=== PATIENT | female | born 1980 | race Two or more races ===

== ENCOUNTER 2016-08-30 01:24 | Inpatient (IN) | payer SELFPAY ==
[~2016-08-30] VITALS: Ht 162.6 cm; Wt 60.4 kg
[2016-08-30] VITALS (13 sets, daily range): BP systolic 80–114; BP diastolic 39–72
[2016-08-30] MEDS ORDERED: IV NORMAL SALINE 1000ML BAG 1,000 ML IV ONE (02:00)
--- NOTE | 2016-08-30 02:04 | PHYS DOC ---
Adult General Chief Complaint Chief Complaint: ABDOMINAL PAIN HPI HPI Patient is a 36 year old female who presents with abdominal pain. Patient reports 2 day history of epigastric and right upper quadrant abdominal pain radiating to her right back. Reports associated nausea without vomiting. Denies fevers or chills, hematemesis, diarrhea or constipation, hematochezia or melena , dysuria or hematuria. Reports previous history of similar symptoms about 1 month ago for which she did not seek medical treatment, spontaneously resolved. History of C-sections in the past. Denies use of alcohol. PCP at the [facility]. History obtained with assistance of Frisian language line geospatial information scientist Review of Systems Review of Systems Constitutional: Denies fever or chills Eyes: Denies change in visual acuity HENT: Denies nasal congestion or sore throat Respiratory: Denies cough or shortness of breath Cardiovascular: Denies chest pain or edema GI: Reports abdominal pain, nausea, denies vomiting, bloody stools or diarrhea : Denies dysuria or hematuria Musculoskeletal: Reports flank pain, denies joint pain Integument: Denies rash or skin lesions Neurologic: Denies headache, focal weakness or sensory changes Current Medications Current Medications Current Medications Medications (Trade) Dose Ordered Sig/Irma Start Time Stop Time Status Last Admin Dose Admin Fentanyl Citrate 50 mcg 50 mcg PRN Q15MIN PRN 08/30/16 02:00 08/31/16 01:59 08/30/16 02:17 50 MCG Levofloxacin/ Dextrose (LEVAQUIN 750mg PREMIX) 150 ml @ 100 mls/hr 1X ONCE 08/30/16 03:30 08/30/16 04:59 Metronidazole 100 ml @ 100 mls/hr 1X ONCE 08/30/16 03:30 08/30/16 04:29 Morphine Sulfate 4 mg 4 mg PRN Q2HR PRN 08/30/16 03:30 08/31/16 03:29 Ondansetron HCl (Zofran) 4 mg PRN Q8HRS PRN 08/30/16 03:30 08/31/16 03:29 Sodium Chloride (Iv Sodium Chloride 0.9% 1000ml Bag) 1,000 ml @ 125 mls/hr Q8H 08/30/16 03:21 08/31/16 03:20 Allergies Allergies Allergies Coded Allergies Type Severity Reaction Last Updated Verified Penicillins Allergy Intermediate 08/30/16 Yes Physical Exam Physical Exam Constitutional: Well-developed, well-nourished, appears uncomfortable, non- toxic appearance. HENT: Normocephalic, atraumatic, bilateral external ears normal, oropharynx moist, nose normal. Eyes: conjunctiva normal, no discharge. Neck: supple, no stridor. Cardiovascular: RRR, no murmurs, no edema. Lungs & Thorax: LCTAB, no wheezing, no respiratory distress. Abdomen: normal bowel sounds, soft, epigastric & RUQ tenderness with palpation, no rebound/guarding, no masses or pulsatile masses, nondistended. Skin: Warm, dry, no erythema, no rash. Back: Right CVA tenderness. Extremities: No tenderness, no edema. Neurologic: Alert and oriented X 3, no focal deficits noted. Psychologic: Affect normal, judgement normal, mood normal. Current Patient Data Vital Signs Vital Signs Date Time Temp Pulse Resp B/P Pulse Ox O2 Delivery O2 Flow Rate FiO2 08/30/16 02:17 16 Room Air 08/30/16 02:02 98.3 76 155/89 99 98.3 Lab Values Laboratory Tests Test 08/30/16 00:44 08/30/16 01:33 08/30/16 01:43 POC Urine HCG, Qualitative Hcg negative (Negative) Urine Collection Type Unknown Urine Color Yellow Urine Clarity Clear Urine pH 5.5 Urine Specific [place] 1.020 Urine Protein Negativemg/dL (NEG-TRACE) Urine Glucose (UA) Negativemg/dL (NEG) Urine Ketones (Stick) Negativemg/dL (NEG) Urine Blood Trace (NEG) Urine Nitrite Negative (NEG) Urine Bilirubin Negative (NEG) Urine Urobilinogen Dipstick 0.2mg/dL (0.2 mg/dL) Urine Leukocyte Esterase Negative (NEG) Urine RBC Occ/HPF (0-2) Urine WBC 1-4/HPF (0-4) Urine Squamous Epithelial Cells Many/LPF Urine Bacteria Few/HPF (0-FEW) Urine Mucus Mod/LPF White Blood Count 13.2x10^3/uL (4.0-11.0) H Red Blood Count 4.64x10^6/uL (3.50-5.40) Hemoglobin 13.1g/dL (12.0-15.5) Hematocrit 39.5% (36.0-47.0) Mean Corpuscular Volume 85fL (79-100) Mean Corpuscular Hemoglobin 28pg (25-35) Mean Corpuscular Hemoglobin Concent 33g/dL (31-37) Red Cell Distribution Width 13.7% (11.5-14.5) Platelet Count 190x10^3/uL (140-400) Neutrophils (%) (Auto) 63% (31-73) Lymphocytes (%) (Auto) 23% (24-48) L Monocytes (%) (Auto) 10% (0-9) H Eosinophils (%) (Auto) 3% (0-3) Basophils (%) (Auto) 0% (0-3) Neutrophils # (Auto) 8.4x10^3uL (1.8-7.7) H Lymphocytes # (Auto) 3.0x10^3/uL (1.0-4.8) Monocytes # (Auto) 1.4x10^3/uL (0.0-1.1) H Eosinophils # (Auto) 0.4x10^3/uL (0.0-0.7) Basophils # (Auto) 0.0x10^3/uL (0.0-0.2) Sodium Level 141mmol/L (136-145) Potassium Level 3.9mmol/L (3.5-5.1) Chloride Level 104mmol/L (98-107) Carbon Dioxide Level 27mmol/L (21-32) Anion Gap 10 (6-14) Blood Urea Nitrogen 15mg/dL (7-20) Creatinine 0.6mg/dL (0.6-1.0) Estimated GFR (Cockcroft-Gault) 113.8 BUN/Creatinine Ratio 25 (6-20) H Glucose Level 122mg/dL (70-99) H Calcium Level 8.7mg/dL (8.5-10.1) Total Bilirubin 0.3mg/dL (0.2-1.0) Aspartate Amino Transferase (AST) 9U/L (15-37) L Alanine Aminotransferase (ALT) 29U/L (14-59) Alkaline Phosphatase 58U/L (46-116) Total Protein 8.1g/dL (6.4-8.2) Albumin 3.8g/dL (3.4-5.0) Albumin/Globulin Ratio 0.9 (1.0-1.7) L Lipase 198U/L (73-393) Laboratory Tests 08/30/16 01:43 Laboratory Tests 08/30/16 01:43 EKG EKG [] Radiology/Procedures Radiology/Procedures PROCEDURE: ABDOMEN LTD PROCEDURE Ultrasound limited abdomen HISTORY Right upper quadrant epigastric pain TECHNIQUE Sonographic examination of the right upper quadrant was performed and multiple static images were obtained FINDINGS The gallbladder is distended and there are small mobile shadowing stones. There is a large stone in the gallbladder neck. The gallbladder wall is top normal limits measuring 3 millimeters in thickness. There is a trace of surrounding fluid and there is tenderness. The common bile duct is top normal limits size measuring 5.5 millimeters in diameter. The right kidney appears normal measures 11 centimeters in length. The majority liver is visualized appears homogeneous. The pancreas is not seen due to overlying bowel gas. IMPRESSION Cholelithiasis and acute cholecystitis. Electronically signed by: Tiffani Sage MD (Aug 30, 2016 02:57:21) DICTATED and SIGNED BY: TIFFANI SAGE III, MD DATE: 08/30/16 0257 [] Course & Med Decision Making Course & Med Decision Making Pertinent Labs and Imaging studies reviewed. (See chart for details) Patient presents with right upper quadrant pain & nausea. Afebrile, RUQ tenderness on exam, mild leukocytosis, normal LFTs, US shows cholelithiasis & acute cholecystitis. Gave IV fluids, zofran, pain medication. Discussed results with patient via geospatial information scientist phone, she agrees with admission. Discussed with Dr. Mtz who plans for lap sharon in the morning, requests admit to hospitalist. Levaquin & flagyl given here. Discussed with Dr. East who agrees to admit to inpatient status. Patient admitted in stable condition. [] Dragon Disclaimer Dragon Disclaimer This electronic medical record was generated, in whole or in part, using a voice recognition dictation system. Departure Departure Impression: Primary Impression: Acute cholecystitis Additional Impressions: Cholelithiasis Leukocytosis Disposition: ADMITTED INPATIENT Admitting Physician: Sara East Condition: STABLE Referrals: NO PCP (PCP) Problem Qualifiers JD SALAZAR MD Aug 30, 2016 02:04
[2016-08-30 02:07] LABS: BASO % 0 % (0-3); EOS % 3 % (0-3); HEMATOCRIT 39.5 % (36.0-47.0); HEMOGLOBIN 13.1 g/dL (12.0-15.5); LYMPH % 23 % (24-48); MEAN CORPUSCULAR HEMOGLOBIN 28 pg (25-35); MEAN CORPUSCULAR HGB CONC 33 g/dL (31-37); MEAN CORPUSCULAR VOLUME 85 fL (79-100); MONO % 10 % (0-9); NEUT % 63 % (31-73); PLATELET COUNT 190 x10^3/uL (140-400); RED BLOOD COUNT 4.64 x10^6/uL (3.50-5.40); RED CELL DISTRIBUTION WIDTH 13.7 % (11.5-14.5); WHITE BLOOD COUNT 13.2 x10^3/uL (4.0-11.0)
[2016-08-30 02:10] LABS: BILIRUBIN,URINE NEGATIVE (NEG); GLUCOSE,URINE NEGATIVE (NEG); NITRITE,URINE NEGATIVE (NEG); PH,URINE 5.5; PROTEIN,URINE NEGATIVE (NEG-TRACE); UROBILINOGEN,URINE 0.2 mg/dL (0.2 mg/dL)
[2016-08-30 02:17] LABS: BACTERIA,URINE FEW /HPF (0-FEW); RBC,URINE OCC /HPF (0-2); SQUAMOUS EPITHELIAL CELL,UR MANY /LPF
[2016-08-30 02:17] LABS: CALCIUM 8.7 mg/dL (8.5-10.1); CREATININE 0.6 mg/dL (0.6-1.0); GFR 113.8; POTASSIUM 3.9 mmol/L (3.5-5.1)
[2016-08-30] MEDS: FENTANYL PF 100 MCG/2 ML VIAL. IV PRN ×4 (02:17→11:26)
[2016-08-30 02:23] LABS: ALBUMIN 3.8 g/dL (3.4-5.0); ALBUMIN/GLOBULIN RATIO 0.9 (1.0-1.7); TOTAL BILIRUBIN 0.3 mg/dL (0.2-1.0); TOTAL PROTEIN 8.1 g/dL (6.4-8.2)
[2016-08-30] MEDS ORDERED: ONDANSETRON PF 4 MG/2 ML VIAL. IV ONE (02:30)
--- NOTE | 2016-08-30 02:59 | RAD ---
PROCEDURE Ultrasound limited abdomen HISTORY Right upper quadrant epigastric pain TECHNIQUE Sonographic examination of the right upper quadrant was performed and multiple static images were obtained FINDINGS The gallbladder is distended and there are small mobile shadowing stones. There is a large stone in the gallbladder neck. The gallbladder wall is top normal limits measuring 3 millimeters in thickness. There is a trace of surrounding fluid and there is tenderness. The common bile duct is top normal limits size measuring 5.5 millimeters in diameter. The right kidney appears normal measures 11 centimeters in length. The majority liver is visualized appears homogeneous. The pancreas is not seen due to overlying bowel gas. IMPRESSION Cholelithiasis and acute cholecystitis. Electronically signed by: Miguel Angel Oneal MD (Aug 30, 2016 02:57:21)
[2016-08-30] MEDS ORDERED: MORPHINE SULFATE 4 MG/ML DISP.SYRIN. IV PRN (03:30)
[2016-08-30] MEDS ORDERED: ONDANSETRON PF 4 MG/2 ML VIAL. IV PRN ×2 (03:30→07:30)
[2016-08-30] MEDS ORDERED: METRONIDAZOLE 500mg PREMIX 100 ML IV ONE (03:30)
[2016-08-30] MEDS: IV NORMAL SALINE 1000ML BAG 1,000 ML IV SCH ×3 (04:37→17:48)
[2016-08-30] MEDS ORDERED: IOHEXOL 300 MG/ML 50 ML VIAL. ONE (07:16)
[2016-08-30] MEDS ORDERED: BUPIVAC MPF-EPI 0.5%-1:200000 30 ML VIAL. ONE (07:16)
[2016-08-30] MEDS ORDERED: SURGICEL HEMOSTAT 4X8 EACH. ONE (07:16)
[2016-08-30] MEDS ORDERED: IV RINGERS,LACTATED 1000ML 1,000 ML IV SCH (07:29)
[2016-08-30] MEDS ORDERED: HYDROMORPHONE 2 MG/ML VIAL. IV PRN (07:30)
[2016-08-30] MEDS ORDERED: FENTANYL PF 100 MCG/2 ML VIAL. IV PRN (07:30)
[2016-08-30] MEDS ORDERED: LIDOCAINE 1% 1 ML SYRINGE. ID PRN (07:30)
[2016-08-30] MEDS ORDERED: PROCHLORPERAZINE 10 MG/2 ML VIAL. IV PRN (07:30)
[2016-08-30] MEDS ORDERED: LIDOCAINE 2% 100 MG/5 ML SYRINGE. ONE (08:26)
[2016-08-30] MEDS ORDERED: PROPOFOL 20 ML IV ONE (08:26)
[2016-08-30] MEDS ORDERED: MIDAZOLAM HCL/PF 2 MG/2 ML VIAL. ONE (08:26)
[2016-08-30] MEDS ORDERED: ONDANSETRON PF 4 MG/2 ML VIAL. ONE (08:26)
[2016-08-30] MEDS ORDERED: DEXAMETHASONE SOD PHOS 20 MG/5 ML VIAL. ONE (08:26)
[2016-08-30] MEDS ORDERED: FENTANYL PF 100 MCG/2 ML VIAL. ONE ×2 (08:27→10:32)
[2016-08-30] MEDS ORDERED: ROCURONIUM 50 MG/5 ML VIAL. ONE (08:27)
[2016-08-30] MEDS ORDERED: BUPIVAC MPF-EPI 0.5%-1:200000 30 ML VIAL. IJ ONE (09:35)
[2016-08-30] MEDS ORDERED: IOHEXOL 300 MG/ML 50 ML VIAL. IV ONE (09:45)
[2016-08-30] MEDS ORDERED: NEOSTIGMINE METHYLSULFATE 5 MG/5 ML SYRINGE. ONE (09:48)
[2016-08-30] MEDS ORDERED: GLYCOPYRROLATE 1 MG/5 ML VIAL. ONE (09:48)
[2016-08-30] MEDS ORDERED: DESFLURANE 61 TO 120 MINUTES IH ONE (09:49)
--- NOTE | 2016-08-30 09:56 | ACF ---
Admission Forms Criteria GALLBLADDER OR BILE DUCT INFLAMMATION OR STONE Clinical Indications for Admission to Inpatient Care ( Place 'X' for any and all applicable criteria): Admission is indicated for patients with ANY ONE of the following(1)(2)(3)(4)(5) : [X]I. Acute cholecystitis as indicated by ALL of the following: [X]a) Right upper quadrant pain, mass, or tenderness [X]b) Systemic signs of inflammation indicated by ANY ONE of the following: [ ]i) Fever [ ]ii) C-reactive protein level greater than 10 mg/L (95 nmol/L) [X]iii) White blood cell count greater than 10,000/mm3 (10 x109/L) or less than 4000/mm3 (4 x109/L) [ ]II. Inpatient admission required rather than observation care (Also use Gallbladder or Bile Duct Inflammation or Stone: Observation Care as appropriate) because of ANY ONE of the following: [ ]a) Common bile duct obstruction diagnosed [ ]b) Vomiting that is severe or persistent [ ]c) Severe pain requiring acute inpatient management [ ]d) Signs of intestinal obstruction or peritonitis [A] [ ]e) Severe electrolyte abnormalities requiring inpatient care [ ]f) Absent bowel sounds with complete ileus(8) [ ]g) Hemodynamic instability [ ]h) High fever or infection requiring inpatient admission as indicated by ANY ONE of the following (9): [ ]1) Appropriate outpatient or observation care antimicrobial Treatment. unavailable, not effective, or not feasible [ ]2) Temperature greater than 104.9 degrees F (40.5 degrees C) (oral) [ ]3) Temperature greater than 103.1 degrees F (39.5 degrees C) (oral) or less than 96.8 degrees F (36 degrees C) (rectal) that does not respond to all emergency treatment measures [ ]4) Documented bacteremia [ ]i) IV fluid to replace significant ongoing losses (greater than 3 L/m2 per day) [ ]j) Percutaneous or open drainage (eg, abscess, biliary tract) procedures [ ]k) Immediate inpatient surgery [ ]l) Other condition, treatment or monitoring requiring inpatient admission [ ]III. Acute cholangitis as indicated by ALL of the following(9)(10): [ ]a) Systemic signs of inflammation indicated by ANY ONE of the following: [ ]i) Fever [ ]ii) C-reactive protein level greater than 10 mg/L (95 nmol /L) [ ]iii) White blood cell count greater than 10,000/mm3 (10 x109/L) or less than 4000/mm3 (4 x109/L) [ ]b) Evidence of common bile duct disease indicated by ANY ONE of the following: [ ]i) Total serum bilirubin level greater than or equal to 2 mg/dL (34 micromoles/L) [ ]ii) Liver function test (alkaline phosphatase (ALP), r- glutamyltransferase (GGT), aspartate aminotransferase (AST), or alanine aminotransferase (ALT)) greater than 1.5 times the upper limit of normal[B] [ ]iii) Hepatobiliary imaging showing biliary dilatation or evidence of etiology (eg, stricture, stone, previously placed stent) Extended stay beyond goal length of stay may be needed for (1)(2)): [ ]a) Bacteremia or Hemodynamic instability [ ]b) Cholecystectomy [ ]c) Other surgical procedure(24) [ ]d) Percutaneous or endoscopic ultrasound-guided cholecystostomy The original [facility] content created by [facility] has been revised. The portions of the content which have been revised are identified through the use of italic text or in bold, and [facility] has neither reviewed nor approved the modified material. All other unmodified content is copyright [facility]. Please see references footnoted in the original [facility] edition 2016 Admission Criteria Met?: Yes CRISSY TALAMANTES Aug 30, 2016 09:56
--- NOTE | 2016-08-30 10:01 | RAD ---
Intraoperative cholangiogram, 08/30/2016: History: Cholecystectomy 3 spot films from surgery are presented for review. Contrast has been injected into the cystic duct remnant. 0.24 minutes of fluoroscopy time was utilized. The distal common bile duct at the ampulla is somewhat narrow, probably due to ampullary spasm. There is good flow of contrast into the duodenum at the ampulla. No filling defect is seen in the common duct to suggest a retained calculus. The incompletely opacified intrahepatic ducts are unremarkable. No contrast extravasation is seen. IMPRESSION: No significant abnormality is detected.
--- NOTE | 2016-08-30 10:30 | PDOC4 ---
Operative Note Operative Note Operative Note: Preoperative Diagnosis: Acute cholecystitis Postoperative Diagnosis: Same Procedure: Laparoscopic cholecystectomy with intraoperative cholangiogram Surgeons: Smith Asst: Dulce HERNÁNDEZ Anesthesia: Gen. Estimated Blood Loss: 50 mL Specimen: Gallbladder to pathology Drains: None Complications: None Indications: The patient is a 36 year old female who was admitted with abdominal pain and findings of acute cholecystitis. Surgical treatment was offered by means of a laparoscopic cholecystectomy. The risks of surgery were discussed which include bleeding, infection, bile duct injury, bile leak, pain, the potential for additional surgeries or procedures. The patient understands and would like to proceed. Description: The patient was taken to the operating room and laid supine on the operating table. General anesthesia was performed. The abdomen was prepped with ChloraPrep and draped in a standard surgical fashion. A small left upper abdominal incision was made with a scalpel through which a visualized 5 mm trocar was inserted and the laparoscope was introduced. In the mid abdomen inferior to the umbilicus a small incision was made through which a 5 mm trocar was inserted. In the right upper quadrant a 5 mm trocar was inserted and in the right lateral abdomen at 2.3 mm mini lap grasper was inserted. The gallbladder appeared tense with wall edema consistent with acute cholecystitis. Over 60 mL of bilious fluid was aspirated from the gallbladder allowing for decompression. The gallbladder was retracted cephalad. The cystic duct was dissected free from surrounding tissues. One clip was placed on the duct near the gallbladder junction. An opening was made in the duct and a cholangiocatheter placed within and secured with a clip. Using contrast dye and fluoroscopy an intraoperative cholangiogram was performed that appeared unremarkable. The clip and catheter were then withdrawn. Three clips were placed on the cystic duct and it was divided. The cystic artery was then identified, dissected free, doubly clipped and divided as well. The gallbladder was then mobilized away from the liver with cautery. The umbilical 5 millimeter trocar was exchanged for an 11 millimeter trocar. The gallbladder was then placed in an endoscopic bag and extracted at the umbilical trocar site. The fascia and skin incisions had to be extended some due to the distention of the gallbladder and presence of large stones. The fascia was closed with interrupted 0 PDS sutures.. All blood and irrigation fluid was suctioned and hemostasis was good. The remaining ports were removed and the pneumoperitoneum was relieved. The skin incisions were injected with half percent Marcaine with epinephrine, and all were closed using 4-0 Monocryl suture. Steri-Strips and dressings were then applied. The patient tolerated the procedure well and was sent to the recovery room in stable condition. At the end of the case all counts were correct. DOMENICO CORDOVA MD Aug 30, 2016 10:30
--- NOTE | 2016-08-30 10:34 | PDOC2 ---
CONSULT Date of Consult Date of Consult DATE: 08/30/16 TIME: 10:32 History of Present Illness Reason for Visit: The patient is a 36-year-old female who reported to the emergency department with abdominal pain. A phone clinical practitioner was used to assist with translation. She has had the pain over the last month but it worsened recently. The pain is located in the upper midabdomen with some radiation to the back. The evaluation in the ER was consistent with acute cholecystitis. Past Medical History Past Medical History denies Past Surgical History Past Surgical History Csection X 4 Social History # pack years ALCOHOL: rare Current Problem List Problem List Problems Medical Problems: (1) Acute cholecystitis Status: Acute (2) Cholelithiasis Status: Acute (3) Leukocytosis Status: Acute Current Medications Current Medications Current Medications Ondansetron HCl 4 mg 4 mg 1X ONCE IV Last administered on 08/30/16 02:16; Start 08/30/16 at 02:30; Stop 08/30/16 at 02:31; Status DC Sodium Chloride (Iv Sodium Chloride 0.9% 1000ml Bag) 1,000 ml @ 1,000 mls/hr 1X ONCE IV Last administered on 08/30/16 01:59; Start 08/30/16 at 02:00; Stop 08/30/16 at 02:59; Status DC Fentanyl Citrate 50 mcg 50 mcg PRN Q15MIN PRN IV PAIN GREATER THAN 3/10 Last administered on 08/30/16 03:35; Start 08/30/16 at 02:00; Stop 08/31/16 at 01:59 Metronidazole 100 ml @ 100 mls/hr 1X ONCE IV Last administered on 08/30/16 03 :35; Start 08/30/16 at 03:30; Stop 08/30/16 at 04:29; Status DC Levofloxacin/ Dextrose (LEVAQUIN 750mg PREMIX) 150 ml @ 100 mls/hr 1X ONCE IV Last administered on 08/30/16 05:17; Start 08/30/16 at 03:30; Stop 08/30/16 at 04:59; Status DC Ondansetron HCl (Zofran) 4 mg PRN Q8HRS PRN IV NAUSEA/VOMITING; Start 08/30/16 at 03:30; Stop 08/31/16 at 03:29 Morphine Sulfate 4 mg 4 mg PRN Q2HR PRN IV SEVERE PAIN Last administered on 08/30 07:35; Start 08/30/16 at 03:30; Stop 08/31/16 at 03:29 Sodium Chloride (Iv Sodium Chloride 0.9% 1000ml Bag) 1,000 ml @ 125 mls/hr Q8H IV Last administered on 08/30/16 04:37; Start 08/30/16 at 03:21; Stop 08/31/16 at 03:20 Ondansetron HCl (Zofran) 0.4 mg PRN Q6HRS PRN IV NAUSEA/VOMITING; Start at 07:30; Stop 08/31/16 at 07:29 Fentanyl Citrate (Fentanyl 2ml Vial) 25 mcg PRN Q5MIN PRN IV MILD PAIN; Start 08/30/16 at 07:30; Stop 08/31/16 at 07:29 Fentanyl Citrate (Fentanyl 2ml Vial) 50 mcg PRN Q5MIN PRN IV MODERATE PAIN; Start 08/30/16 at 07:30; Stop 08/31/16 at 07:29 Morphine Sulfate 1 mg 1 mg PRN Q10MIN PRN IV SEVERE PAIN; Start 08/30/16 at 07: 30; Stop 08/31/16 at 07:29 Lactated Ringer's (Iv Lactated Ringers) 1,000 ml @ 30 mls/hr Q24H IV Last administered on 08/30/16 08:56; Start 08/30/16 at 07:29; Stop 08/30/16 at 19:28 Lidocaine HCl 2 ml PRN 1X PRN ID PRIOR TO IV START; Start 08/30/16 at 07:30; Stop 08/31/16 at 07:29 Hydromorphone HCl (Dilaudid) 0.5 mg PRN Q10MIN PRN IV SEV PAIN, Second choice; Start 08/30/16 at 07:30; Stop 08/31/16 at 07:29 Prochlorperazine Edisylate (Compazine) 5 mg PACU PRN PRN IV NAUSEA, MRX1; Start 08/30/16 at 07:30; Stop 08/31/16 at 07:29 Bupivacaine HCl/ Epinephrine Bitart (Sensorcain-Mpf Epi 0.5%-1:920820) 30 ml STK -MED ONCE IJ Last administered on 08/30/16 09:35; Start 08/30/16 at 09:35; Stop 08/30/16 at 09:55; Status DC Iohexol (Omnipaque 300 Mg/ml) 50 ml STK-MED ONCE IV Last administered on 09:45; Start 08/30/16 at 09:45; Stop 08/30/16 at 09:55; Status DC Oxycodone/ Acetaminophen (Percocet 5/325) 1-2 PRN Q4HRS PRN PO PAIN; Start 08/30 at 10:30; Status UNV Allergies Allergies: Coded Allergies: Penicillins (Verified Allergy, Intermediate, 08/30/16) ROS General: No: Appetite, Chills, Fatigue, Malaise, Night Sweats, Other PSYCHOLOGICAL ROS: No: Anxiety, Behavioral Disorder, Concentration difficultie , Decreased libido, Depression, Disorientation, Hallucinations, Hostility, Irritablity, Memory difficulties, Mood Swings, Obsessive thoughts, Other, Physical abuse, Sexual abuse, Sleep disturbances, Suicidal ideation Eyes: No Blurry vision, No Decreased vision, No Double vision, No Dry eyes, No Excessive tearing, No Eye Pain, No Itchy Eyes, No Loss of vision, No Other, No Photophobia, No Scotomata, No Uses contacts, No Uses glasses HEENT: No: Epistaxis, Heacaches, Hearing change, Nasal congestion, Nasal discharge, Oral lesions, Other, Sinus pain, Sneezing, Snoring, Sore Throat, Tinnitus, Vertigo, Visual Changes, Vocal changes ALLERGY AND IMMUNOLOGY: No: Hives, Insect Bite Sensitivity, Itchy/Watery Eyes, Nasal Congestion, Other, Post Nasal Drip, Seasonal Allergies Hematological and Lymphatic: No: Bleeding Problems, Blood Clots, Blood Transfusions, Brusing, Night Sweats, Other, Pallor, Swollen Lymph Nodes ENDOCRINE: No: Breast Changes, Galactorrhea, Hair Pattern Changes, Hot Flashes , Malaise/lethargy, Mood Swings, Other, Palpitations, Polydipsia/polyuria, Skin Changes, Temperature Intolerance, Unexpected Weight Changes Respiratory: No: Cough, Hemoptysis, Orthopnea, Other, Pleuritic Pain, SOB with excertion, Shortness of breath, Sputum Changes, Stridor, Tachypnea, Wheezing Cardiovascular: No Chest Pain, No Edema, No Lt Headedness, No Orthopnea, No Other, No Palpitations, No Paroxysmal Noc. Dyspnea Gastrointestinal: No Abdominal Pain, No Constipation, No Diarrhea, No Hematochezia, No Melena, No Nausea, No Other, No Vomiting Genitourinary: No , No , No , No , No , No , No , No Discharge, No Dysuria, No Flank Pain, No Frequency, No Hematuria, No Incontinence, No Other, No Pain, No Retention, No Urgency Musculoskeletal: No Gait Disturbance, No Joint Pain, No Joint Stiffness, No Joint Swelling, No Muscle Pain, No Muscular Weakness, No Other, No Pain In:, No Swelling In: Neurological: No Behavorial Changes, No Bowel/Bladder ControlChng, No Confusion , No Dizziness, No Gait Disturbance, No Headaches, No Impaired Coord/balance, No Memory Loss, No Numbness/Tingling, No Other, No Seizures, No Speech Problems , No Tremors, No Visual Changes, No Weakness Skin: No Acne, No Dry Skin, No Eczema, No Hair Changes, No Lumps, No Mole Changes, No Mottling, No Nail Changes, No Other, No Pruritus, No Rash, No Skin Lesion Changes Physical Exam General: Alert, Oriented X3, Cooperative HEENT: Atraumatic, PERRLA Lungs: Clear to auscultation Heart: Regular rate Abdomen: Soft (mildly tender RUQ) Extremities: No clubbing, No cyanosis Skin: No rashes, No breakdown Neuro: Normal gait, Normal speech, Strength at 5/5 X4 ext Psych/Mental Status: Mental status NL MUSCULOSKELETAL: No joint tenderness, No deformity Vitals VITALS Vital Signs Date Time Temp Pulse Resp B/P Pulse Ox O2 Delivery O2 Flow Rate FiO2 08/30/16 08:00 Room Air 08/30/16 07:00 97.7 76 18 110/55 100 97.7 Labs Labs Laboratory Tests Test 08/30/16 00:44 08/30/16 01:33 08/30/16 01:43 Bedside Urine HCG, Qualitative Hcg negative (Negative) Urine Collection Type Unknown Urine Color Yellow Urine Clarity Clear Urine pH 5.5 Urine Specific [place] 1.020 Urine Protein Negativemg/dL (NEG-TRACE) Urine Glucose (UA) Negativemg/dL (NEG) Urine Ketones (Stick) Negativemg/dL (NEG) Urine Blood Trace (NEG) Urine Nitrite Negative (NEG) Urine Bilirubin Negative (NEG) Urine Urobilinogen Dipstick 0.2mg/dL (0.2 mg/dL) Urine Leukocyte Esterase Negative (NEG) Urine RBC Occ/HPF (0-2) Urine WBC 1-4/HPF (0-4) Urine Squamous Epithelial Cells Many/LPF Urine Bacteria Few/HPF (0-FEW) Urine Mucus Mod/LPF White Blood Count 13.2x10^3/uL (4.0-11.0) Red Blood Count 4.64x10^6/uL (3.50-5.40) Hemoglobin 13.1g/dL (12.0-15.5) Hematocrit 39.5% (36.0-47.0) Mean Corpuscular Volume 85fL (79-100) Mean Corpuscular Hemoglobin 28pg (25-35) Mean Corpuscular Hemoglobin Concent 33g/dL (31-37) Red Cell Distribution Width 13.7% (11.5-14.5) Platelet Count 190x10^3/uL (140-400) Neutrophils (%) (Auto) 63% (31-73) Lymphocytes (%) (Auto) 23% (24-48) Monocytes (%) (Auto) 10% (0-9) Eosinophils (%) (Auto) 3% (0-3) Basophils (%) (Auto) 0% (0-3) Neutrophils # (Auto) 8.4x10^3uL (1.8-7.7) Lymphocytes # (Auto) 3.0x10^3/uL (1.0-4.8) Monocytes # (Auto) 1.4x10^3/uL (0.0-1.1) Eosinophils # (Auto) 0.4x10^3/uL (0.0-0.7) Basophils # (Auto) 0.0x10^3/uL (0.0-0.2) Sodium Level 141mmol/L (136-145) Potassium Level 3.9mmol/L (3.5-5.1) Chloride Level 104mmol/L (98-107) Carbon Dioxide Level 27mmol/L (21-32) Anion Gap 10 (6-14) Blood Urea Nitrogen 15mg/dL (7-20) Creatinine 0.6mg/dL (0.6-1.0) Estimated GFR (Cockcroft-Gault) 113.8 BUN/Creatinine Ratio 25 (6-20) Glucose Level 122mg/dL (70-99) Calcium Level 8.7mg/dL (8.5-10.1) Total Bilirubin 0.3mg/dL (0.2-1.0) Aspartate Amino Transf (AST/SGOT) 9U/L (15-37) Alanine Aminotransferase (ALT/SGPT) 29U/L (14-59) Alkaline Phosphatase 58U/L (46-116) Total Protein 8.1g/dL (6.4-8.2) Albumin 3.8g/dL (3.4-5.0) Albumin/Globulin Ratio 0.9 (1.0-1.7) Lipase 198U/L (73-393) Laboratory Tests Test 08/30/16 00:44 08/30/16 01:33 08/30/16 01:43 Bedside Urine HCG, Qualitative Hcg negative (Negative) Urine Collection Type Unknown Urine Color Yellow Urine Clarity Clear Urine pH 5.5 Urine Specific [place] 1.020 Urine Protein Negativemg/dL (NEG-TRACE) Urine Glucose (UA) Negativemg/dL (NEG) Urine Ketones (Stick) Negativemg/dL (NEG) Urine Blood Trace (NEG) Urine Nitrite Negative (NEG) Urine Bilirubin Negative (NEG) Urine Urobilinogen Dipstick 0.2mg/dL (0.2 mg/dL) Urine Leukocyte Esterase Negative (NEG) Urine RBC Occ/HPF (0-2) Urine WBC 1-4/HPF (0-4) Urine Squamous Epithelial Cells Many/LPF Urine Bacteria Few/HPF (0-FEW) Urine Mucus Mod/LPF White Blood Count 13.2x10^3/uL (4.0-11.0) Red Blood Count 4.64x10^6/uL (3.50-5.40) Hemoglobin 13.1g/dL (12.0-15.5) Hematocrit 39.5% (36.0-47.0) Mean Corpuscular Volume 85fL (79-100) Mean Corpuscular Hemoglobin 28pg (25-35) Mean Corpuscular Hemoglobin Concent 33g/dL (31-37) Red Cell Distribution Width 13.7% (11.5-14.5) Platelet Count 190x10^3/uL (140-400) Neutrophils (%) (Auto) 63% (31-73) Lymphocytes (%) (Auto) 23% (24-48) Monocytes (%) (Auto) 10% (0-9) Eosinophils (%) (Auto) 3% (0-3) Basophils (%) (Auto) 0% (0-3) Neutrophils # (Auto) 8.4x10^3uL (1.8-7.7) Lymphocytes # (Auto) 3.0x10^3/uL (1.0-4.8) Monocytes # (Auto) 1.4x10^3/uL (0.0-1.1) Eosinophils # (Auto) 0.4x10^3/uL (0.0-0.7) Basophils # (Auto) 0.0x10^3/uL (0.0-0.2) Sodium Level 141mmol/L (136-145) Potassium Level 3.9mmol/L (3.5-5.1) Chloride Level 104mmol/L (98-107) Carbon Dioxide Level 27mmol/L (21-32) Anion Gap 10 (6-14) Blood Urea Nitrogen 15mg/dL (7-20) Creatinine 0.6mg/dL (0.6-1.0) Estimated GFR (Cockcroft-Gault) 113.8 BUN/Creatinine Ratio 25 (6-20) Glucose Level 122mg/dL (70-99) Calcium Level 8.7mg/dL (8.5-10.1) Total Bilirubin 0.3mg/dL (0.2-1.0) Aspartate Amino Transf (AST/SGOT) 9U/L (15-37) Alanine Aminotransferase (ALT/SGPT) 29U/L (14-59) Alkaline Phosphatase 58U/L (46-116) Total Protein 8.1g/dL (6.4-8.2) Albumin 3.8g/dL (3.4-5.0) Albumin/Globulin Ratio 0.9 (1.0-1.7) Lipase 198U/L (73-393) Assessment/Plan Assessment/Plan RUQ pain, suspect acute cholecystitis, recommend laparoscopic cholecystectomy. The detail and risks of surgery were discussed with the patient. She understands and would like to proceed. DOMENICO CORDOVA MD Aug 30, 2016 10:34
[2016-08-30] MEDS: MORPHINE SULFATE 2 MG/ML DISP.SYRIN. IV PRN ×2 (10:45→10:58)
[2016-08-30] MEDS ORDERED: OXYCODONE/APAP 5/325 TABLET. PO PRN (10:45)
--- NOTE | 2016-08-30 14:59 | PDOC1 ---
History and Physical Date of Admission Date of Admission DATE: 08/30/16 TIME: 14:55 Identification/Chief Complaint Chief Complaint abd pain Source Source: Caregiver, Chart review, Patient History of Present Illness History of Present Illness Ms. Bullard, is a 36 year old female, admit with abdominal pain. 2 day history of epigastric and right upper quadrant abdominal pain. Pain 7/10, radiating to her right back.w/ nausea only taken to the OR this AM by [facility] Past Medical History Cardiovascular: No pertinent hx Pulmonary: No pertinent hx GI: No pertinent hx Renal/: No pertinent hx Endocrine: No pertinent hx Dermatology: No pertinent hx Family History Family History: No Significant Social History Smoke: No ALCOHOL: rare Current Problem List Problem List Problems Medical Problems: (1) Acute cholecystitis Status: Acute (2) Cholelithiasis Status: Acute (3) Leukocytosis Status: Acute Problems: Current Medications Current Medications Current Medications Ondansetron HCl 4 mg 4 mg 1X ONCE IV Last administered on 08/30/16 02:16; Start 08/30/16 at 02:30; Stop 08/30/16 at 02:31; Status DC Sodium Chloride (Iv Sodium Chloride 0.9% 1000ml Bag) 1,000 ml @ 1,000 mls/hr 1X ONCE IV Last administered on 08/30/16 01:59; Start 08/30/16 at 02:00; Stop 08/30/16 at 02:59; Status DC Fentanyl Citrate 50 mcg 50 mcg PRN Q15MIN PRN IV PAIN GREATER THAN 3/10 Last administered on 08/30/16 03:35; Start 08/30/16 at 02:00; Stop 08/31/16 at 01:59 Metronidazole 100 ml @ 100 mls/hr 1X ONCE IV Last administered on 08/30/16 03 :35; Start 08/30/16 at 03:30; Stop 08/30/16 at 04:29; Status DC Levofloxacin/ Dextrose (LEVAQUIN 750mg PREMIX) 150 ml @ 100 mls/hr 1X ONCE IV Last administered on 08/30/16 05:17; Start 08/30/16 at 03:30; Stop 08/30/16 at 04:59; Status DC Ondansetron HCl (Zofran) 4 mg PRN Q8HRS PRN IV NAUSEA/VOMITING; Start 08/30/16 at 03:30; Stop 08/31/16 at 03:29 Morphine Sulfate 4 mg 4 mg PRN Q2HR PRN IV SEVERE PAIN Last administered on 08/30 07:35; Start 08/30/16 at 03:30; Stop 08/31/16 at 03:29 Sodium Chloride (Iv Sodium Chloride 0.9% 1000ml Bag) 1,000 ml @ 125 mls/hr Q8H IV Last administered on 08/30/16 04:37; Start 08/30/16 at 03:21; Stop 08/31/16 at 03:20 Ondansetron HCl (Zofran) 0.4 mg PRN Q6HRS PRN IV NAUSEA/VOMITING; Start at 07:30; Stop 08/31/16 at 07:29 Fentanyl Citrate (Fentanyl 2ml Vial) 25 mcg PRN Q5MIN PRN IV MILD PAIN; Start 08/30/16 at 07:30; Stop 08/31/16 at 07:29 Fentanyl Citrate (Fentanyl 2ml Vial) 50 mcg PRN Q5MIN PRN IV MODERATE PAIN Last administered on 08/30/16 11:26; Start 08/30/16 at 07:30; Stop 08/31/16 at 07: 29 Morphine Sulfate 1 mg 1 mg PRN Q10MIN PRN IV SEVERE PAIN Last administered on 10:58; Start 08/30/16 at 07:30; Stop 08/31/16 at 07:29 Lactated Ringer's (Iv Lactated Ringers) 1,000 ml @ 30 mls/hr Q24H IV Last administered on 08/30/16 08:56; Start 08/30/16 at 07:29; Stop 08/30/16 at 19:28 Lidocaine HCl 2 ml PRN 1X PRN ID PRIOR TO IV START; Start 08/30/16 at 07:30; Stop 08/31/16 at 07:29 Hydromorphone HCl (Dilaudid) 0.5 mg PRN Q10MIN PRN IV SEV PAIN, Second choice; Start 08/30/16 at 07:30; Stop 08/31/16 at 07:29 Prochlorperazine Edisylate (Compazine) 5 mg PACU PRN PRN IV NAUSEA, MRX1 Last administered on 08/30/16 10:53; Start 08/30/16 at 07:30; Stop 08/31/16 at 07:29 Bupivacaine HCl/ Epinephrine Bitart (Sensorcain-Mpf Epi 0.5%-1:989911) 30 ml STK -MED ONCE IJ Last administered on 08/30/16 09:35; Start 08/30/16 at 09:35; Stop 08/30/16 at 09:55; Status DC Iohexol (Omnipaque 300 Mg/ml) 50 ml STK-MED ONCE IV Last administered on 09:45; Start 08/30/16 at 09:45; Stop 08/30/16 at 09:55; Status DC Oxycodone/ Acetaminophen (Percocet 5/325) 1 tab PRN Q4HRS PRN PO PAIN; Start at 10:30 Oxycodone/ Acetaminophen (Percocet 5/325) 2 tab PRN Q4HRS PRN PO PAIN; Start at 10:45 Cellulose 1 each STK-MED ONCE .ROUTE ; Start 08/30/16 at 07:16; Stop 08/30/16 at 11:33; Status DC Bupivacaine HCl/ Epinephrine Bitart (Sensorcain-Mpf Epi 0.5%-1:055777) 30 ml STK -MED ONCE .ROUTE ; Start 08/30/16 at 07:16; Stop 08/30/16 at 11:33; Status DC Iohexol (Omnipaque 300 Mg/ml) 50 ml STK-MED ONCE .ROUTE ; Start 08/30/16 at 07:16 ; Stop 08/30/16 at 11:33; Status DC Dexamethasone Sodium Phosphate (Decadron) 20 mg STK-MED ONCE .ROUTE ; Start 08/30 at 08:26; Stop 08/30/16 at 11:38; Status DC Ondansetron HCl 4 mg 4 mg STK-MED ONCE .ROUTE ; Start 08/30/16 at 08:26; Stop 08/30/16 at 11:38; Status DC Propofol (Diprivan) 20 ml @ As Directed STK-MED ONCE IV ; Start 08/30/16 at 08:26 ; Stop 08/30/16 at 11:38; Status DC Lidocaine HCl (Lidocaine HCl 2% Abboject) 100 mg STK-MED ONCE .ROUTE ; Start 08/30/16 at 08:26; Stop 08/30/16 at 11:38; Status DC Midazolam HCl (Versed) 2 mg STK-MED ONCE .ROUTE ; Start 08/30/16 at 08:26; Stop 08/30/16 at 11:38; Status DC Fentanyl Citrate (Fentanyl 2ml Vial) 100 mcg STK-MED ONCE .ROUTE ; Start at 08:27; Stop 08/30/16 at 11:38; Status DC Rocuronium [place] (Zemuron) 50 mg STK-MED ONCE .ROUTE ; Start 08/30/16 at 08:27 ; Stop 08/30/16 at 11:38; Status DC Glycopyrrolate (Robinul) 1 mg STK-MED ONCE .ROUTE ; Start 08/30/16 at 09:48; Stop 08/30/16 at 11:42; Status DC Neostigmine Methylsulfate 5 mg STK-MED ONCE .ROUTE ; Start 08/30/16 at 09:48; Stop 08/30/16 at 11:42; Status DC Desflurane (Suprane) 60 ml STK-MED ONCE IH ; Start 08/30/16 at 09:49; Stop at 11:42; Status DC Fentanyl Citrate (Fentanyl 2ml Vial) 100 mcg STK-MED ONCE .ROUTE ; Start at 10:32; Stop 08/30/16 at 11:44; Status DC Allergies Allergies: Coded Allergies: Penicillins (Verified Allergy, Intermediate, 08/30/16) ROS General: No: Appetite, Chills, Fatigue, Malaise, Night Sweats, Other PSYCHOLOGICAL ROS: No: Anxiety, Behavioral Disorder, Concentration difficultie , Decreased libido, Depression, Disorientation, Hallucinations, Hostility, Irritablity, Memory difficulties, Mood Swings, Obsessive thoughts, Other, Physical abuse, Sexual abuse, Sleep disturbances, Suicidal ideation Eyes: No Blurry vision, No Decreased vision, No Double vision, No Dry eyes, No Excessive tearing, No Eye Pain, No Itchy Eyes, No Loss of vision, No Other, No Photophobia, No Scotomata, No Uses contacts, No Uses glasses Gastrointestinal: Yes Abdominal Pain, Yes Nausea Genitourinary: No , No , No , No , No , No , No , No Discharge, No Dysuria, No Flank Pain, No Frequency, No Hematuria, No Incontinence, No Other, No Pain, No Retention, No Urgency Musculoskeletal: No Gait Disturbance, No Joint Pain, No Joint Stiffness, No Joint Swelling, No Muscle Pain, No Muscular Weakness, No Other, No Pain In:, No Swelling In: Physical Exam General: Alert, mild distress HEENT: EOMI, Mucous membr. moist/pink Lungs: Normal air movement Heart: no murmurs Rectal Exam: not examined Extremities: No edema Skin: No significant lesion Neuro: Normal gait, Sensation intact Psych/Mental Status: Mood NL Vitals Vitals Vital Signs Date Time Temp Pulse Resp B/P Pulse Ox O2 Delivery O2 Flow Rate FiO2 08/30/16 13:45 98.2 94 20 97/50 96 Room Air 98.2 08/30/16 10:51 2 Labs Labs Laboratory Tests Test 08/30/16 00:44 08/30/16 01:33 08/30/16 01:43 Bedside Urine HCG, Qualitative Hcg negative (Negative) Urine Collection Type Unknown Urine Color Yellow Urine Clarity Clear Urine pH 5.5 Urine Specific [place] 1.020 Urine Protein Negativemg/dL (NEG-TRACE) Urine Glucose (UA) Negativemg/dL (NEG) Urine Ketones (Stick) Negativemg/dL (NEG) Urine Blood Trace (NEG) Urine Nitrite Negative (NEG) Urine Bilirubin Negative (NEG) Urine Urobilinogen Dipstick 0.2mg/dL (0.2 mg/dL) Urine Leukocyte Esterase Negative (NEG) Urine RBC Occ/HPF (0-2) Urine WBC 1-4/HPF (0-4) Urine Squamous Epithelial Cells Many/LPF Urine Bacteria Few/HPF (0-FEW) Urine Mucus Mod/LPF White Blood Count 13.2x10^3/uL (4.0-11.0) Red Blood Count 4.64x10^6/uL (3.50-5.40) Hemoglobin 13.1g/dL (12.0-15.5) Hematocrit 39.5% (36.0-47.0) Mean Corpuscular Volume 85fL (79-100) Mean Corpuscular Hemoglobin 28pg (25-35) Mean Corpuscular Hemoglobin Concent 33g/dL (31-37) Red Cell Distribution Width 13.7% (11.5-14.5) Platelet Count 190x10^3/uL (140-400) Neutrophils (%) (Auto) 63% (31-73) Lymphocytes (%) (Auto) 23% (24-48) Monocytes (%) (Auto) 10% (0-9) Eosinophils (%) (Auto) 3% (0-3) Basophils (%) (Auto) 0% (0-3) Neutrophils # (Auto) 8.4x10^3uL (1.8-7.7) Lymphocytes # (Auto) 3.0x10^3/uL (1.0-4.8) Monocytes # (Auto) 1.4x10^3/uL (0.0-1.1) Eosinophils # (Auto) 0.4x10^3/uL (0.0-0.7) Basophils # (Auto) 0.0x10^3/uL (0.0-0.2) Sodium Level 141mmol/L (136-145) Potassium Level 3.9mmol/L (3.5-5.1) Chloride Level 104mmol/L (98-107) Carbon Dioxide Level 27mmol/L (21-32) Anion Gap 10 (6-14) Blood Urea Nitrogen 15mg/dL (7-20) Creatinine 0.6mg/dL (0.6-1.0) Estimated GFR (Cockcroft-Gault) 113.8 BUN/Creatinine Ratio 25 (6-20) Glucose Level 122mg/dL (70-99) Calcium Level 8.7mg/dL (8.5-10.1) Total Bilirubin 0.3mg/dL (0.2-1.0) Aspartate Amino Transf (AST/SGOT) 9U/L (15-37) Alanine Aminotransferase (ALT/SGPT) 29U/L (14-59) Alkaline Phosphatase 58U/L (46-116) Total Protein 8.1g/dL (6.4-8.2) Albumin 3.8g/dL (3.4-5.0) Albumin/Globulin Ratio 0.9 (1.0-1.7) Lipase 198U/L (73-393) Laboratory Tests Test 08/30/16 00:44 08/30/16 01:33 08/30/16 01:43 Bedside Urine HCG, Qualitative Hcg negative (Negative) Urine Collection Type Unknown Urine Color Yellow Urine Clarity Clear Urine pH 5.5 Urine Specific [place] 1.020 Urine Protein Negativemg/dL (NEG-TRACE) Urine Glucose (UA) Negativemg/dL (NEG) Urine Ketones (Stick) Negativemg/dL (NEG) Urine Blood Trace (NEG) Urine Nitrite Negative (NEG) Urine Bilirubin Negative (NEG) Urine Urobilinogen Dipstick 0.2mg/dL (0.2 mg/dL) Urine Leukocyte Esterase Negative (NEG) Urine RBC Occ/HPF (0-2) Urine WBC 1-4/HPF (0-4) Urine Squamous Epithelial Cells Many/LPF Urine Bacteria Few/HPF (0-FEW) Urine Mucus Mod/LPF White Blood Count 13.2x10^3/uL (4.0-11.0) Red Blood Count 4.64x10^6/uL (3.50-5.40) Hemoglobin 13.1g/dL (12.0-15.5) Hematocrit 39.5% (36.0-47.0) Mean Corpuscular Volume 85fL (79-100) Mean Corpuscular Hemoglobin 28pg (25-35) Mean Corpuscular Hemoglobin Concent 33g/dL (31-37) Red Cell Distribution Width 13.7% (11.5-14.5) Platelet Count 190x10^3/uL (140-400) Neutrophils (%) (Auto) 63% (31-73) Lymphocytes (%) (Auto) 23% (24-48) Monocytes (%) (Auto) 10% (0-9) Eosinophils (%) (Auto) 3% (0-3) Basophils (%) (Auto) 0% (0-3) Neutrophils # (Auto) 8.4x10^3uL (1.8-7.7) Lymphocytes # (Auto) 3.0x10^3/uL (1.0-4.8) Monocytes # (Auto) 1.4x10^3/uL (0.0-1.1) Eosinophils # (Auto) 0.4x10^3/uL (0.0-0.7) Basophils # (Auto) 0.0x10^3/uL (0.0-0.2) Sodium Level 141mmol/L (136-145) Potassium Level 3.9mmol/L (3.5-5.1) Chloride Level 104mmol/L (98-107) Carbon Dioxide Level 27mmol/L (21-32) Anion Gap 10 (6-14) Blood Urea Nitrogen 15mg/dL (7-20) Creatinine 0.6mg/dL (0.6-1.0) Estimated GFR (Cockcroft-Gault) 113.8 BUN/Creatinine Ratio 25 (6-20) Glucose Level 122mg/dL (70-99) Calcium Level 8.7mg/dL (8.5-10.1) Total Bilirubin 0.3mg/dL (0.2-1.0) Aspartate Amino Transf (AST/SGOT) 9U/L (15-37) Alanine Aminotransferase (ALT/SGPT) 29U/L (14-59) Alkaline Phosphatase 58U/L (46-116) Total Protein 8.1g/dL (6.4-8.2) Albumin 3.8g/dL (3.4-5.0) Albumin/Globulin Ratio 0.9 (1.0-1.7) Lipase 198U/L (73-393) VTE Prophylaxis Ordered VTE Prophylaxis Devices: No VTE Pharmacological Prophylaxi: No Assessment/Plan Assessment/Plan acute abd pain acute cholecystitis SIRS, not infectious, not sepsis to OR this Am IV meds and pain control pt would like to try to DC DENISE Gonzalez MD Aug 30, 2016 14:59
[2016-08-30] MEDS: OXYCODONE/APAP 5/325 TABLET. PO PRN ×2 (15:07→21:25)
[2016-08-31 02:58] VITALS: BP 97/51
[2016-08-31 07:00] VITALS: BP 100/62
--- NOTE | 2016-08-31 07:16 | PDOC ---
PROGRESS NOTES Subjective Subjective some pain, but ok Objective Objective Vital Signs Date Time Temp Pulse Resp B/P Pulse Ox O2 Delivery O2 Flow Rate FiO2 08/31/16 02:58 98.1 79 18 97/51 97 Room Air 98.1 08/30/16 10:51 2 Intake and Output 08/31/16 07:00 Intake Total 1785 ml Output Total 600 ml Balance 1185 ml Intake Oral 410 ml IV Total 1375 ml Output Urine Total 600 ml # Voids 6 Physical Exam Abdomen: Soft (tender at incisions) Assessment Assessment Problems Medical Problems: (1) Acute cholecystitis Status: Acute (2) Cholelithiasis Status: Acute (3) Leukocytosis Status: Acute Plan Plan of Care OK to discharge, pain script and work note left in chart; please FU with me in office in 2 weeks; thanks!! Comment Review of Relevant I have reviewed the following items sarah (where applicable) has been applied. Labs Laboratory Tests Test 08/30/16 00:44 08/30/16 01:33 08/30/16 01:43 Bedside Urine HCG, Qualitative Hcg negative (Negative) Urine Collection Type Unknown Urine Color Yellow Urine Clarity Clear Urine pH 5.5 Urine Specific [place] 1.020 Urine Protein Negativemg/dL (NEG-TRACE) Urine Glucose (UA) Negativemg/dL (NEG) Urine Ketones (Stick) Negativemg/dL (NEG) Urine Blood Trace (NEG) Urine Nitrite Negative (NEG) Urine Bilirubin Negative (NEG) Urine Urobilinogen Dipstick 0.2mg/dL (0.2 mg/dL) Urine Leukocyte Esterase Negative (NEG) Urine RBC Occ/HPF (0-2) Urine WBC 1-4/HPF (0-4) Urine Squamous Epithelial Cells Many/LPF Urine Bacteria Few/HPF (0-FEW) Urine Mucus Mod/LPF White Blood Count 13.2x10^3/uL (4.0-11.0) Red Blood Count 4.64x10^6/uL (3.50-5.40) Hemoglobin 13.1g/dL (12.0-15.5) Hematocrit 39.5% (36.0-47.0) Mean Corpuscular Volume 85fL (79-100) Mean Corpuscular Hemoglobin 28pg (25-35) Mean Corpuscular Hemoglobin Concent 33g/dL (31-37) Red Cell Distribution Width 13.7% (11.5-14.5) Platelet Count 190x10^3/uL (140-400) Neutrophils (%) (Auto) 63% (31-73) Lymphocytes (%) (Auto) 23% (24-48) Monocytes (%) (Auto) 10% (0-9) Eosinophils (%) (Auto) 3% (0-3) Basophils (%) (Auto) 0% (0-3) Neutrophils # (Auto) 8.4x10^3uL (1.8-7.7) Lymphocytes # (Auto) 3.0x10^3/uL (1.0-4.8) Monocytes # (Auto) 1.4x10^3/uL (0.0-1.1) Eosinophils # (Auto) 0.4x10^3/uL (0.0-0.7) Basophils # (Auto) 0.0x10^3/uL (0.0-0.2) Sodium Level 141mmol/L (136-145) Potassium Level 3.9mmol/L (3.5-5.1) Chloride Level 104mmol/L (98-107) Carbon Dioxide Level 27mmol/L (21-32) Anion Gap 10 (6-14) Blood Urea Nitrogen 15mg/dL (7-20) Creatinine 0.6mg/dL (0.6-1.0) Estimated GFR (Cockcroft-Gault) 113.8 BUN/Creatinine Ratio 25 (6-20) Glucose Level 122mg/dL (70-99) Calcium Level 8.7mg/dL (8.5-10.1) Total Bilirubin 0.3mg/dL (0.2-1.0) Aspartate Amino Transf (AST/SGOT) 9U/L (15-37) Alanine Aminotransferase (ALT/SGPT) 29U/L (14-59) Alkaline Phosphatase 58U/L (46-116) Total Protein 8.1g/dL (6.4-8.2) Albumin 3.8g/dL (3.4-5.0) Albumin/Globulin Ratio 0.9 (1.0-1.7) Lipase 198U/L (73-393) Medications Current Medications Ondansetron HCl 4 mg 4 mg 1X ONCE IV Last administered on 08/30/16t 02:16; Start 08/30/16 at 02:30; Stop 08/30/16 at 02:31; Status DC Sodium Chloride (Iv Sodium Chloride 0.9% 1000ml Bag) 1,000 ml @ 1,000 mls/hr 1X ONCE IV Last administered on 08/30/16 01:59; Start 08/30/16 at 02:00; Stop 08/30/16 at 02:59; Status DC Fentanyl Citrate 50 mcg 50 mcg PRN Q15MIN PRN IV PAIN GREATER THAN 3/10 Last administered on 08/30/16 03:35; Start 08/30/16 at 02:00; Stop 08/31/16 at 01:59; Status DC Metronidazole 100 ml @ 100 mls/hr 1X ONCE IV Last administered on 08/30/16 03 :35; Start 08/30/16 at 03:30; Stop 08/30/16 at 04:29; Status DC Levofloxacin/ Dextrose (LEVAQUIN 750mg PREMIX) 150 ml @ 100 mls/hr 1X ONCE IV Last administered on 08/30/16 05:17; Start 08/30/16 at 03:30; Stop 08/30/16 at 04:59; Status DC Ondansetron HCl (Zofran) 4 mg PRN Q8HRS PRN IV NAUSEA/VOMITING; Start 08/30/16 at 03:30; Stop 08/31/16 at 03:29; Status DC Morphine Sulfate 4 mg 4 mg PRN Q2HR PRN IV SEVERE PAIN Last administered on 08/30 07:35; Start 08/30/16 at 03:30; Stop 08/31/16 at 03:29; Status DC Sodium Chloride (Iv Sodium Chloride 0.9% 1000ml Bag) 1,000 ml @ 125 mls/hr Q8H IV Last administered on 08/30/16 17:48; Start 08/30/16 at 03:21; Stop 08/31/16 at 03:20; Status DC Ondansetron HCl (Zofran) 0.4 mg PRN Q6HRS PRN IV NAUSEA/VOMITING; Start at 07:30; Stop 08/30/16 at 17:13; Status DC Fentanyl Citrate (Fentanyl 2ml Vial) 25 mcg PRN Q5MIN PRN IV MILD PAIN; Start 08/30/16 at 07:30; Stop 08/30/16 at 17:14; Status DC Fentanyl Citrate (Fentanyl 2ml Vial) 50 mcg PRN Q5MIN PRN IV MODERATE PAIN Last administered on 08/30/16 11:26; Start 08/30/16 at 07:30; Stop 08/30/16 at 17: 14; Status DC Morphine Sulfate 1 mg 1 mg PRN Q10MIN PRN IV SEVERE PAIN Last administered on 10:58; Start 08/30/16 at 07:30; Stop 08/30/16 at 17:14; Status DC Lactated Ringer's (Iv Lactated Ringers) 1,000 ml @ 30 mls/hr Q24H IV Last administered on 08/30/16 08:56; Start 08/30/16 at 07:29; Stop 08/30/16 at 17:14; Status DC Lidocaine HCl 2 ml PRN 1X PRN ID PRIOR TO IV START; Start 08/30/16 at 07:30; Stop 08/30/16 at 17:14; Status DC Hydromorphone HCl (Dilaudid) 0.5 mg PRN Q10MIN PRN IV SEV PAIN, Second choice; Start 08/30/16 at 07:30; Stop 08/30/16 at 17:14; Status DC Prochlorperazine Edisylate (Compazine) 5 mg PACU PRN PRN IV NAUSEA, MRX1 Last administered on 08/30/16 10:53; Start 08/30/16 at 07:30; Stop 08/30/16 at 17:14; Status DC Bupivacaine HCl/ Epinephrine Bitart (Sensorcain-Mpf Epi 0.5%-1:584607) 30 ml STK -MED ONCE IJ Last administered on 08/30/16 09:35; Start 08/30/16 at 09:35; Stop 08/30/16 at 09:55; Status DC Iohexol (Omnipaque 300 Mg/ml) 50 ml STK-MED ONCE IV Last administered on 09:45; Start 08/30/16 at 09:45; Stop 08/30/16 at 09:55; Status DC Oxycodone/ Acetaminophen (Percocet 5/325) 1 tab PRN Q4HRS PRN PO PAIN Last administered on 08/30/16t 21:25; Start 08/30/16 at 10:30 Oxycodone/ Acetaminophen (Percocet 5/325) 2 tab PRN Q4HRS PRN PO PAIN; Start at 10:45 Cellulose 1 each STK-MED ONCE .ROUTE ; Start 08/30/16 at 07:16; Stop 08/30/16 at 11:33; Status DC Bupivacaine HCl/ Epinephrine Bitart (Sensorcain-Mpf Epi 0.5%-1:380027) 30 ml STK -MED ONCE .ROUTE ; Start 08/30/16 at 07:16; Stop 08/30/16 at 11:33; Status DC Iohexol (Omnipaque 300 Mg/ml) 50 ml STK-MED ONCE .ROUTE ; Start 08/30/16 at 07:16 ; Stop 08/30/16 at 11:33; Status DC Dexamethasone Sodium Phosphate (Decadron) 20 mg STK-MED ONCE .ROUTE ; Start 08/30 at 08:26; Stop 08/30/16 at 11:38; Status DC Ondansetron HCl 4 mg 4 mg STK-MED ONCE .ROUTE ; Start 08/30/16 at 08:26; Stop 08/30/16 at 11:38; Status DC Propofol (Diprivan) 20 ml @ As Directed STK-MED ONCE IV ; Start 08/30/16 at 08:26 ; Stop 08/30/16 at 11:38; Status DC Lidocaine HCl (Lidocaine HCl 2% Abboject) 100 mg STK-MED ONCE .ROUTE ; Start 08/30/16 at 08:26; Stop 08/30/16 at 11:38; Status DC Midazolam HCl (Versed) 2 mg STK-MED ONCE .ROUTE ; Start 08/30/16 at 08:26; Stop 08/30/16 at 11:38; Status DC Fentanyl Citrate (Fentanyl 2ml Vial) 100 mcg STK-MED ONCE .ROUTE ; Start at 08:27; Stop 08/30/16 at 11:38; Status DC Rocuronium [place] (Zemuron) 50 mg STK-MED ONCE .ROUTE ; Start 08/30/16 at 08:27 ; Stop 08/30/16 at 11:38; Status DC Glycopyrrolate (Robinul) 1 mg STK-MED ONCE .ROUTE ; Start 08/30/16 at 09:48; Stop 08/30/16 at 11:42; Status DC Neostigmine Methylsulfate 5 mg STK-MED ONCE .ROUTE ; Start 08/30/16 at 09:48; Stop 08/30/16 at 11:42; Status DC Desflurane (Suprane) 60 ml STK-MED ONCE IH ; Start 08/30/16 at 09:49; Stop at 11:42; Status DC Fentanyl Citrate (Fentanyl 2ml Vial) 100 mcg STK-MED ONCE .ROUTE ; Start at 10:32; Stop 08/30/16 at 11:44; Status DC Vitals/I & O Vital Sign - Last 24 Hours 08/30/16 08/30/16 08/30/16 08/30/16 07:25 07:35 08:00 10:35 Temp 98.7 98.7 Pulse 70 Resp 16 B/P 107/55 Pulse Ox 99 O2 Delivery Room Air Room Air Room Air Simple Mask O2 Flow Rate 10 08/30/16 08/30/16 08/30/16 08/30/16 10:45 10:51 10:58 11:05 Pulse 74 Resp 16 16 16 B/P 104/59 Pulse Ox 99 100 O2 Delivery Simple Mask Nasal Cannula Room Air Room Air O2 Flow Rate 10.0 2 08/30/16 08/30/16 08/30/16 08/30/16 11:05 11:20 11:26 11:32 Temp 98.2 98.2 Pulse 70 85 Resp 16 16 18 B/P 97/56 98/52 Pulse Ox 99 99 O2 Delivery Room Air Room Air Room Air Room Air 08/30/16 08/30/16 08/30/16 08/30/16 11:45 11:54 12:00 12:15 Temp 97.9 97.9 Pulse 81 75 71 Resp 20 20 20 B/P 96/52 95/57 81/39 Pulse Ox 97 97 95 O2 Delivery Room Air Room Air Room Air Room Air 08/30/16 08/30/16 08/30/16 08/30/16 12:30 12:45 13:15 13:45 Temp 97.9 98.2 97.9 98.2 Pulse 79 82 88 94 Resp 20 20 20 20 B/P 83/45 80/42 86/41 97/50 Pulse Ox 96 97 97 96 O2 Delivery Room Air Room Air Room Air Room Air 08/30/16 08/30/16 08/30/16 08/30/16 14:45 15:07 15:45 19:00 Temp 98.2 98.4 98.2 98.4 Pulse 96 87 89 Resp 20 18 B/P 96/53 93/63 114/72 Pulse Ox 95 96 98 O2 Delivery Room Air Room Air Room Air Room Air 08/30/16 08/30/16 08/30/16 08/30/16 20:00 21:25 22:25 23:25 Temp 99.0 99.0 Pulse 99 Resp 18 B/P 103/57 Pulse Ox 98 97 97 O2 Delivery Room Air Room Air Room Air Room Air 08/31/16 02:58 Temp 98.1 98.1 Pulse 79 Resp 18 B/P 97/51 Pulse Ox 97 O2 Delivery Room Air Intake and Output 08/30/16 08/30/16 08/31/16 15:00 23:00 07:00 Intake Total 10 ml 1775 ml Output Total 600 ml Balance -590 ml 1775 ml DOMENICO CORDOVA MD Aug 31, 2016 07:16
[2016-08-31] MEDS ORDERED: OXYC1TAB7 PO (10:14)
--- NOTE | 2016-08-31 10:17 | PDOC3 ---
Discharge Summary Visit Information Date of Admission: Aug 30, 2016 Date of Discharge: Aug 31, 2016 Admitting Diagnosis: sharon Final Diagnosis acute abd pain acute cholecystitis SIRS, not infectious, not sepsis Problems Medical Problems: (1) Acute cholecystitis Status: Acute (2) Cholelithiasis Status: Acute (3) Leukocytosis Status: Acute Brief Hospital Course Allergies Allergies Coded Allergies Type Severity Reaction Last Updated Verified Penicillins Allergy Intermediate 08/30/16 Yes Vital Signs Vital Signs Date Time Temp Pulse Resp B/P Pulse Ox O2 Delivery O2 Flow Rate FiO2 08/31/16 08:44 18 Room Air 08/31/16 07:00 98.1 85 100/62 96 98.1 08/30/16 10:51 2 Lab Results Laboratory Tests Test 08/30/16 00:44 08/30/16 01:33 08/30/16 01:43 Bedside Urine HCG, Qualitative Hcg negative (Negative) Urine Collection Type Unknown Urine Color Yellow Urine Clarity Clear Urine pH 5.5 Urine Specific [place] 1.020 Urine Protein Negativemg/dL (NEG-TRACE) Urine Glucose (UA) Negativemg/dL (NEG) Urine Ketones (Stick) Negativemg/dL (NEG) Urine Blood Trace (NEG) Urine Nitrite Negative (NEG) Urine Bilirubin Negative (NEG) Urine Urobilinogen Dipstick 0.2mg/dL (0.2 mg/dL) Urine Leukocyte Esterase Negative (NEG) Urine RBC Occ/HPF (0-2) Urine WBC 1-4/HPF (0-4) Urine Squamous Epithelial Cells Many/LPF Urine Bacteria Few/HPF (0-FEW) Urine Mucus Mod/LPF White Blood Count 13.2x10^3/uL (4.0-11.0) Red Blood Count 4.64x10^6/uL (3.50-5.40) Hemoglobin 13.1g/dL (12.0-15.5) Hematocrit 39.5% (36.0-47.0) Mean Corpuscular Volume 85fL (79-100) Mean Corpuscular Hemoglobin 28pg (25-35) Mean Corpuscular Hemoglobin Concent 33g/dL (31-37) Red Cell Distribution Width 13.7% (11.5-14.5) Platelet Count 190x10^3/uL (140-400) Neutrophils (%) (Auto) 63% (31-73) Lymphocytes (%) (Auto) 23% (24-48) Monocytes (%) (Auto) 10% (0-9) Eosinophils (%) (Auto) 3% (0-3) Basophils (%) (Auto) 0% (0-3) Neutrophils # (Auto) 8.4x10^3uL (1.8-7.7) Lymphocytes # (Auto) 3.0x10^3/uL (1.0-4.8) Monocytes # (Auto) 1.4x10^3/uL (0.0-1.1) Eosinophils # (Auto) 0.4x10^3/uL (0.0-0.7) Basophils # (Auto) 0.0x10^3/uL (0.0-0.2) Sodium Level 141mmol/L (136-145) Potassium Level 3.9mmol/L (3.5-5.1) Chloride Level 104mmol/L (98-107) Carbon Dioxide Level 27mmol/L (21-32) Anion Gap 10 (6-14) Blood Urea Nitrogen 15mg/dL (7-20) Creatinine 0.6mg/dL (0.6-1.0) Estimated GFR (Cockcroft-Gault) 113.8 BUN/Creatinine Ratio 25 (6-20) Glucose Level 122mg/dL (70-99) Calcium Level 8.7mg/dL (8.5-10.1) Total Bilirubin 0.3mg/dL (0.2-1.0) Aspartate Amino Transf (AST/SGOT) 9U/L (15-37) Alanine Aminotransferase (ALT/SGPT) 29U/L (14-59) Alkaline Phosphatase 58U/L (46-116) Total Protein 8.1g/dL (6.4-8.2) Albumin 3.8g/dL (3.4-5.0) Albumin/Globulin Ratio 0.9 (1.0-1.7) Lipase 198U/L (73-393) Brief Hospital Course Ms. Bullard is a 36 old w/ acute abd pain, taken to OR by Dr. Mtz, obs overnight, pt did well, pain improved DC home Discharge Information Condition at Discharge: Improved Follow Up: Weeks Disposition/Orders: D/C to Home Patient Instructions Patient Instructions time < 30 min DENISE SWANN MD Aug 31, 2016 10:17
[2016-08-31 11:00] VITALS: BP 95/54
--- NOTE | 2016-08-31 15:27 | PATHOLOGY ---
PATHOLOGY REPORT * * * * * * * * FINAL DIAGNOSIS: Gallbladder, laparoscopic cholecystectomy: - Cholelithiasis. - Chronic and focal slight acute cholecystitis with eosinophils. COMMENT: There is no evidence of malignancy. (JAIMIEM:; d/t: 08/31/16) REPORT ELECTRONICALLY SIGNED BY: Roderick Galeana M.D. DATE/TIME: 08/31/2016 15:27 * * * * * * * * GROSS PATHOLOGY: Received in formalin labeled "Raza Reeves - gallbladder and contents," is a 10.3 x 4.3 x 4.3 cm, intact gallbladder with pink-rosenberg, diffusely hemorrhagic, and wrinkled serosal surfaces. Opening the gallbladder reveals bright red to light green and granular mucosa and an average wall thickness of 0.2 cm. The submucosa is markedly edematous. Several yellow-green, spherical to cuboidal, and multifaceted calculi are present and no masses are noted grossly. [employer] sections from the body and fundus are submitted along with the proximal margin in cassette A1. (TTL; 08/30/2016) INITIAL CPT CODE(S): A; 80277 Professional services performed by [facility] [address] Technical services performed by [facility] at [address] [place] [address], [facility] [address], [place] [address]. SPECIMEN(S) RECEIVED: A.Gallbladder and contents CLINICAL HISTORY: Cholelithiasis and acute cholecystitis PATIENT: RAZA REEVES /AGE: 106/16/1980 (Age: 36) PATIENT #: [id number] ALT CASE #: SPECIMEN COLLECTION DATE: 08/30/2016 SPECIMEN RECEIVED DATE: 08/30/2016 [facility] - [id number] [place] [address] - PHONE: [phone] * * * END OF REPORT * * *
== END 2016-08-31 14:30 | disposition home or self-care (01) | DRG 418 ==
LOC: ER 01:24 → 4 NORTH 02:42
PROVIDERS: ADMIT Internal Medicine; ATTEND Internal Medicine
PROC: 0FT44ZZ Resection of Gallbladder, Percutaneous Endoscopic Approach (ICD-10-PCS; principal; 2016-08-30 10:00)
DX: K80.00 Calculus of gallbladder with acute cholecystitis without obstruction (principal); R65.10 Systemic inflammatory response syndrome (SIRS) of non-infectious origin without acute organ dysfunction; K82.8 Other specified diseases of gallbladder
CPT/HCPCS: 36415; 74300; 76705; 80053; 81001; 81025; 83690; 85027; 88304; 96361; 96374; 96375; 96376; C1769; C1782; J0780; J1100; J1956; J2250; J2270; J2405; J2704; J2710; J3010; J3490; J7030; J7120; Q9967; 99285-25